=== PATIENT | female | born 1970 | race Caucasian/White ===

== ENCOUNTER 2017-07-09 23:58 | Emergency (ER) | payer BC, OTHER ==
[2017-07-10 00:40] VITALS: BP 154/91; PULSE 122; TEMP 98; BMI 28.3
--- NOTE | 2017-07-10 00:58 | PDOC ---
History of Present Illness - General History Source: Patient Exam Limitations: No Limitations <Mignon Wick - Last Filed: 07/10/17 02:09> <KoryMonicaashlie Lemus - Last Filed: 07/10/17 02:52> - General Chief Complaint: Pain Stated Complaint: CHEST PAIN Time Seen by Provider: 07/10/17 00:58 - History of Present Illness Initial Comments: 07/10/17 01:54 The patient is a 46 year old female, with a significant past medical history of asthma, who presents to the emergency department with intermittent chest pain, palpitations, and shortness of breath for 10 days. The patient states her symptoms have become more frequent and progressing in severity since the onset. She states she was taking a drop of oregano oil for her sinus congestion last week with significant resolve, however, developed her current symptoms about 2 days after starting the oregano drops. She reportedly discontinued the oregano drops, however, states her chest pain and palpitations became worse and associated feeling short of breath with her pain. She states her palpitations last for long periods of time and tonight, reports feeling the heartbeat in my ears. Secondarily, the patient reports bilateral calf tightness which she associates to her bilateral ankle swelling for the past 2 months. She states she recently traveled by car to and from [facility] on both 06/25 and 07/03. The patient denies headache and dizziness. The patient denies fever, chills, nausea, vomit, diarrhea and constipation. The patient denies dysuria, frequency, urgency and hematuria. Allergies: prednisone Social history: 1/2 pack of cigarettes daily (Mignon Wick) Past History <Mignon Wick - Last Filed: 07/10/17 02:09> - Past Medical History COPD: No Other medical history: Pt denies - Suicide/Smoking/Psychosocial Hx Smoking History: Current every day smoker Have you smoked in the past 12 months: Yes Number of Cigarettes Smoked Daily: 10 Information on smoking cessation initiated: No Hx Alcohol Use: No Drug/Substance Use Hx: No Substance Use Type: None <Monica Horn - Last Filed: 07/10/17 02:52> - Past Medical History Allergies/Adverse Reactions: Allergies Allergy/AdvReac Type Severity Reaction Status Date / Time prednisone Allergy Severe Vomiting Verified 07/10/17 00:39 Review of Systems - Review of Systems Able to Perform ROS?: Yes <Mignon Wick - Last Filed: 07/10/17 02:09> <Monica Horn - Last Filed: 07/10/17 02:52> - Review of Systems Comments:: 07/10/17 01:55 CONSTITUTIONAL: Absent: fever, chills, diaphoresis, generalized weakness, malaise, loss of appetite HEENT: Absent: rhinorrhea, nasal congestion, throat pain, throat swelling, difficulty swallowing, mouth swelling, ear pain, eye pain, visual Changes CARDIOVASCULAR: (+) chest pain, palpitations, Absent: syncope, irregular heart rate, lightheadedness, peripheral edema RESPIRATORY: (+) shortness of breath, Absent: cough, dyspnea with exertion, orthopnea, wheezing, stridor, hemoptysis GASTROINTESTINAL: Absent: abdominal pain, abdominal distension, nausea, vomiting, diarrhea, constipation, melena, hematochezia GENITOURINARY: Absent: dysuria, frequency, urgency, hesitancy, hematuria, flank pain, genital pain MUSCULOSKELETAL: (+) bilateral ankle swelling and calf tightness. Absent: myalgia, arthralgia, SKIN: Absent: rash, itching, pallor HEMATOLOGIC/IMMUNOLOGIC: Absent: easy bleeding, easy bruising, lymphadenopathy, frequent infections ENDOCRINE: Absent: unexplained weight gain, unexplained weight loss, heat intolerance, cold intolerance NEUROLOGIC: Absent: headache, focal weakness or paresthesias, dizziness, unsteady gait, seizure, mental status changes, bladder or bowel incontinence PSYCHIATRIC: Absent: anxiety, depression, suicidal or homicidal ideation, hallucinations. ( Mignon Wick) *Physical Exam <Mignon Wick - Last Filed: 07/10/17 02:09> <Monica Horn - Last Filed: 07/10/17 02:52> - Vital Signs Last Vital Signs Temp Pulse Resp BP Pulse Ox 98.0 F 122 H 20 154/91 100 07/10/17 00:34 07/10/17 00:34 07/10/17 00:34 07/10/17 00:34 07/10/17 00:34 - Physical Exam Comments: 07/10/17 01:56 GENERAL: Well developed, well nourished. Awake and alert. No acute distress. HEENT: Normocephalic, atraumatic. PERRLA, EOMI. No conjunctival pallor. Sclera are non- icteric. Moist mucous membranes. Oropharynx is clear. NECK: Supple. Full ROM. No JVD. Carotid pulses 2+ and symmetric, without bruits. No thyromegaly. No lymphadenopathy. CARDIOVASCULAR: (+) tachycardic rate with normal rhythm. No murmurs, rubs, or gallops. Distal pulses are 2+ and symmetric. PULMONARY: No evidence of respiratory distress. Lungs clear to auscultation bilaterally. No wheezing, rales or rhonchi. ABDOMINAL: Soft. Non-tender. Non-distended. No rebound or guarding. No organomegaly. Normoactive bowel sounds. MUSCULOSKELETAL Normal range of motion at all joints. No bony deformities or tenderness. No CVA tenderness. EXTREMITIES: (+) bilateral non-pitting edema to bilateral ankles. No cyanosis. No clubbing. No calf tenderness. SKIN: Warm and dry. Normal capillary refill. No rashes. No jaundice. NEUROLOGICAL: Alert, awake, appropriate. Cranial nerves 2-12 intact. Normoreflexic in the upper and lower extremities. Normal speech. Toes are down-going bilaterally. Gait is normal without ataxia. PSYCHIATRIC: Cooperative. Good eye contact. Appropriate mood and affect. (Mignon Wick) Heart Score/ECG Review <Mignon Wick - Last Filed: 07/10/17 02:09> <Monica Horn - Last Filed: 07/10/17 02:52> - [place] Comment: 07/10/17 02:08 EKG was read by Dr. Horn @ 1:20 Impression: Sinus tachycardia Vent. Rate: 105 bpm (Mignon Wick) ED Treatment Course - LABORATORY CBC & Chemistry Diagram: 07/10/17 01:22 07/10/17 01:22 <Mignon Wick - Last Filed: 07/10/17 02:09> - LABORATORY CBC & Chemistry Diagram: 07/10/17 01:22 07/10/17 01:22 <Monica Horn - Last Filed: 07/10/17 02:52> - ADDITIONAL ORDERS Additional order review: Laboratory Results 07/10/17 07/10/17 07/10/17 01:22 01:22 01:22 PT with INR 11.40 INR 1.01 Sodium 144 Potassium 5.0 Chloride 114 H Carbon Dioxide 24 Anion Gap 6 L BUN 23 H Creatinine 1.0 Creat Clearance w eGFR 59.43 Random Glucose 105 Calcium 8.4 L Magnesium 2.0 Total Bilirubin 0.2 AST 28 ALT 51 Alkaline Phosphatase 126 H Creatine Kinase 94 Troponin I < 0.02 Total Protein 5.0 L Albumin 2.1 L Serum , Qual Negative 07/10/17 01:22 RBC 3.86 MCV 84.7 MCHC 32.3 RDW 12.6 MPV 7.5 Neutrophils % 59.6 Lymphocytes % 30.8 Monocytes % 8.2 Eosinophils % 0.8 Basophils % 0.6 - RADIOLOGY Radiology Studies Ordered: Category Date Time Status DUPLEX VASCUL US-2LEGS [US] Stat Ultrasound 07/10/17 01:45 Taken - Medications Given in the ED: ED Medications Discontinued Medications Generic Name Dose Route Start Last Admin Trade Name Freq PRN Reason Stop Dose Admin Aspirin 162 mg 07/10/17 00:59 07/10/17 01:32 Asa - PO 07/10/17 01:00 162 mg ONCE ONE Administration Medical Decision Making <Mignon Wick - Last Filed: 07/10/17 02:09> <Monica Horn - Last Filed: 07/10/17 02:52> - Medical Decision Making 07/10/17 02:36 46-year-old female presents with complaint of intermittent palpitations for the past 10 days, and 2 months of lower extremity edema. Past medical history asthma. Allergies prednisone. Social history has 3 children, tobacco use, half a pack a day 20 years Patient states she has not seen a physician in many years, but has an appointment with Dr. Jayro Villareal EKG is sinus tachycardia 105 CBC is within normal limits. No leukocytosis, no significant anemia, normal platelet Chemistries negative troponin, normal creatinine, normal glucose, slightly elevated BUN at 23 07/10/17 02:38 Duplex Doppler of the right and left leg were negative for DVT (Monica Horn) *DC/Admit/Observation/Transfer <Mignon Wick - Last Filed: 07/10/17 02:09> <Monica Horn - Last Filed: 07/10/17 02:52> Diagnosis at time of Disposition: Palpitations, Edema leg - Discharge Dispostion Condition at time of disposition: Stable - Referrals Referrals: Jayro Villareal MD [Staff Physician] - - Attestations Scribe Attestion: 07/10/17 01:57 Documentation prepared by Mignon Wick, acting as clinical medical transcriptionist for Monica Horn MD (Mignon Wick)
[2017-07-10] MEDS ORDERED: ASPIRIN 81 MG CHEWABLE TABLETS PO ONE (00:59)
[2017-07-10] MEDS ORDERED: ASPIRIN 81 MG CHEWABLE TABLETS ONE (01:29)
[2017-07-10 01:35] LABS: BASO % 0.6 % (0-2.0); EOS % 0.8 % (0-4.5); HEMATOCRIT 32.7 % (32.4-45.2); HEMOGLOBIN 10.6 GM/dL (10.7-15.3); LYMPH % 30.8 % (8-40); MCH 27.4 pg (25.7-33.7); MCHC 32.3 g/dl (32.0-36.0); MEAN CELL VOLUME 84.7 fl (80-96); MEAN PLT VOLUME 7.5 fl (7.5-11.1); MONO % 8.2 % (3.8-10.2); NEUT % 59.6 % (42.8-82.8); PLATELET COUNT 330 K/MM3 (134-434); RBC 3.86 M/mm3 (3.60-5.2); RDW 12.6 % (11.6-15.6); WHITE BLOOD COUNT 9.8 K/mm3 (4.0-10.0)
[2017-07-10 01:47] LABS: INR 1.01 (0.82-1.09); PROTHROMBIN TIME (PATIENT) 11.4 SEC (9.98-11.88)
[2017-07-10 01:56] LABS: ALBUMIN 2.1 g/dl (3.4-5.0); ANION GAP 6 (8-16); BILIRUBIN,TOTAL 0.2 mg/dL (0.2-1.0); BLOOD UREA NITROGEN 23 mg/dL (7-18); CALCIUM 8.4 mg/dL (8.5-10.1); CHLORIDE 114 mmol/L (98-107); CO2 24 mmol/L (21-32); GLUCOSE,RANDOM 105 mg/dL (74-106); SGOT/AST 28 U/L (15-37); SGPT/ALT 51 U/L (12-78); SODIUM 144 mmol/L (136-145)
[2017-07-10 01:59] LABS: ALK PHOS 126 U/L (45-117)
[2017-07-10] MEDS ORDERED: SODIUM CHLORIDE 1,000 ML IV STA (03:03)
--- NOTE | 2017-07-10 04:44 | PDOC ---
*Physical Exam - Vital Signs Last Vital Signs Temp Pulse Resp BP Pulse Ox 98.0 F 122 H 20 154/91 100 07/10/17 00:34 07/10/17 00:34 07/10/17 00:34 07/10/17 00:34 07/10/17 00:34 ED Treatment Course - LABORATORY CBC & Chemistry Diagram: 07/10/17 01:22 07/10/17 01:22 - ADDITIONAL ORDERS Additional order review: Laboratory Results 07/10/17 07/10/17 07/10/17 02:45 01:22 01:22 PT with INR INR D-Dimer 1388 H Sodium 144 Potassium 5.0 Chloride 114 H Carbon Dioxide 24 Anion Gap 6 L BUN 23 H Creatinine 1.0 Creat Clearance w eGFR 59.43 Random Glucose 105 Calcium 8.4 L Magnesium 2.0 Total Bilirubin 0.2 AST 28 ALT 51 Alkaline Phosphatase 126 H Creatine Kinase 94 Troponin I < 0.02 Total Protein 5.0 L Albumin 2.1 L Serum , Qual Negative 07/10/17 01:22 PT with INR 11.40 INR 1.01 D-Dimer Sodium Potassium Chloride Carbon Dioxide Anion Gap BUN Creatinine Creat Clearance w eGFR Random Glucose Calcium Magnesium Total Bilirubin AST ALT Alkaline Phosphatase Creatine Kinase Troponin I Total Protein Albumin Serum , Qual 07/10/17 01:22 RBC 3.86 MCV 84.7 MCHC 32.3 RDW 12.6 MPV 7.5 Neutrophils % 59.6 Lymphocytes % 30.8 Monocytes % 8.2 Eosinophils % 0.8 Basophils % 0.6 - Medications Given in the ED: ED Medications Discontinued Medications Generic Name Dose Route Start Last Admin Trade Name Freq PRN Reason Stop Dose Admin Aspirin 162 mg 07/10/17 00:59 07/10/17 01:32 Asa - PO 07/10/17 01:00 162 mg ONCE ONE Administration Sodium Chloride 1,000 mls @ 1,000 mls/hr 07/10/17 03:03 07/10/17 03:24 Normal Saline - IV 07/10/17 04:02 1,000 mls/hr ASDIR STA Administration Medical Decision Making - Medical Decision Making 07/10/17 04:43 cta of chest is negative for PE. Pt to follow up with her pcp or the doctors *DC/Admit/Observation/Transfer Diagnosis at time of Disposition: Palpitations, Edema leg, Chest pain - Discharge Dispostion Disposition: HOME Condition at time of disposition: Stable Admit: No - Referrals Referrals: Jayro Villareal MD [Staff Physician] - Onur Reyes MD [Staff Physician] - Mukesh Ferrer MD, MD [Staff Physician] - - Patient Instructions Printed Discharge Instructions: DI for Chest Pain, DI for Palpitations Additional Instructions: Please follow up with your doctor or the doctors referred you here in the ER. Return if any problems - Post Discharge Activity
--- NOTE | 2017-07-10 11:04 | EKG ---
Test Reason : Blood Pressure : / mmHG Vent. Rate : 105 BPM Atrial Rate : 105 BPM P-R Int : 170 ms QRS Dur : 080 ms QT Int : 312 ms P-R-T Axes : 076 075 051 degrees QTc Int : 412 ms SINUS TACHYCARDIA POSSIBLE LEFT ATRIAL ENLARGEMENT BORDERLINE ECG NO PREVIOUS ECGS AVAILABLE Confirmed by SARAH MATIAS, DAO ([id number]) on 07/10/2017 11:04:41 AM Referred By: Confirmed By:DAO SMITH MD
== END 2017-07-10 04:56 | disposition home or self-care (01) ==
LOC: JER 23:58
PROC: 3E0337Z Introduction of Electrolytic and Water Balance Substance into Peripheral Vein, Percutaneous Approach (ICD-10-PCS; principal; 2017-07-09)
DX: R00.2 Palpitations (principal); R07.9 Chest pain, unspecified; R60.0 Localized edema
CPT/HCPCS: 36415; 71275-TC; 80053; 82550; 83735; 84484; 84703; 85025; 85379; 85610; 93005; 93010; 93970-TC; 96360; 99283-25

== ENCOUNTER 2017-12-12 09:39 | Day surgery (SDC) | payer OTHER ==
[2017-12-12 10:22] LABS: BASO % 0.5 % (0-2.0); EOS % 0.8 % (0-4.5); HEMATOCRIT 31.4 % (32.4-45.2); HEMOGLOBIN 10.7 GM/dL (10.7-15.3); LYMPH % 28.6 % (8-40); MCH 28.5 pg (25.7-33.7); MCHC 34.2 g/dl (32.0-36.0); MEAN CELL VOLUME 83.4 fl (80-96); MEAN PLT VOLUME 7.5 fl (7.5-11.1); MONO % 4.4 % (3.8-10.2); NEUT % 65.7 % (42.8-82.8); PLATELET COUNT 320 K/MM3 (134-434); RBC 3.76 M/mm3 (3.60-5.2); RDW 13.1 % (11.6-15.6); WHITE BLOOD COUNT 9.9 K/mm3 (4.0-10.0)
[2017-12-12] MEDS ORDERED: ACETAMINOPHEN 325 MG TABLET (FP) ONE ×2 (10:26→14:15)
[2017-12-12] MEDS ORDERED: ACETAMINOPHEN 325 MG TABLET (FP) PO ONE ×2 (10:30→15:00)
[2017-12-12 10:32] LABS: INR 0.98 (0.82-1.09); PROTHROMBIN TIME (PATIENT) 11.1 SEC (9.7-13.0)
[2017-12-12 10:43] VITALS: TEMP 97.9; BMI 25.9
[2017-12-12] MEDS ORDERED: ONDANSETRON 4 MG/2 ML VIAL ONE (14:14)
[2017-12-12] MEDS ORDERED: ONDANSETRON 4 MG/2 ML VIAL IVPB ONE (14:25)
[2017-12-12 18:03] VITALS: BP 119/72; PULSE 88
--- NOTE | 2017-12-24 11:13 | PATH ---
Surgical Pathology Report Patient Name: MALU BALES [facility]. Rec. #: [id number] /Age/Gender: 1970 (Age: 47) / F Account: [id number] Location: RADIOLOGY INTER Taken: 12/12/2017 Received: 12/12/2017 Reported: 12/24/2017 Physicians: Nurys Rosenthal M.D. Specimen(s) Received RENAL BIOPSY Clinical History Nephrotic syndrome and newly diagnosed Graves disease Intraoperative Consult Diagnosis Right renal biopsy: Adequate glomeruli present. Diego Goff M.D., 12/12/17 Final Diagnosis RENAL BIOPSY: 1. Diffuse endocapillary proliferative glomerulonephritis, with IgG3 kappa deposits. See Comment. 2. Proximal tubular degenerative and regenerative changes, diffuse. 3. Tubular atrophy, interstitial fibrosis and interstitial inflammation, mild to moderate. 4. Arteriosclerosis, mild. COMMENT: The immunofluorescence findings are consistent with for monoclonal IgG3 kappa deposition. Ultrastructural features of immunotactoid glomerulopathy or cryoglobulinemic glomerulonephritis are not seen, therefore the biopsy findings are consistent with proliferative GN with monoclonal IgG deposition. Clinical correlation with hematologic studies is recommended. GROSS DESCRIPTION: Received in formalin for light microscopy is 1 murdock tissue core measuring 0.5 cm in length. Received in Job fixture for immunofluorescence microscopy are 3 murdock tissue cores measuring 0.2, 0.3 and 0.4 cm in length. Received in glutaraldehyde for electron microscopy are 3 murdock tissue cores measuring 0.1-0.2 cm in length. MICROSCOPIC DESCRIPTION: Sections are stained with H&E, PAS, trichrome, and JMS. Sections show 2 core of renal cortex containing 22 glomeruli, 6 of which show complete global sclerosis. The remaining glomeruli are moderately enlarged and show diffuse endocapillary hypercellularity and global duplication of basement membranes with cellular interposition. Numerous intracapillary mononuclear leukocytes are noted. Mesangial areas show moderate diffuse hypercellularity. Segmental subendothelial fuchsinophilic deposit are seen. No definitive basement membrane spikes are identified. No crescents, fibrinoid necrosis or fibrin thrombi are seen. Proximal tubules show diffuse degenerative and regenerative changes including loss of apical brush border, nuclear enlargement and prominent nucleoli. There is mild to moderate patchy tubular atrophy and interstitial fibrosis affecting at least 30% of the cortical area, accompanied by a patchy mononuclear inflammatory cell infiltrate. No tubulitis is seen. Arteries display mild intimal fibrosis and no evidence of arteritis. IMMUNOFLUORESCENCE (PROCEDURE): INTERPRETATION: GLOMERULI TUBULES INTERSTITIUM VESSELS IgG 7gloms 3+ neg neg neg Global gran GCW IgM 7 gloms neg neg neg neg IgA 7 gloms neg casts 1+ neg neg C3 7 gloms 2+ neg neg neg Global gran GCW C1 7 gloms 2+ neg neg neg Global gran GCW FBGN 7 gloms neg neg neg neg ALB 7 gloms neg neg neg neg KAPPA 7 gloms 3+ casts 1+ neg neg Global gran GCW LAMBDA 7 gloms neg casts 1+ neg neg Positive and negative controls show appropriate reactivity. IMMUNOFLUORESCENCE (PROCEDURE) INTERPRETATION IgG1-4 heavy chain subtypes GLOMERULI TUBULES INTERSTITIUM VESSELS IgG1 5 gloms neg neg neg neg IgG2 5 gloms neg neg neg neg IgG3 5 gloms 2+ neg neg neg Global gran GCW IgG4 5 gloms neg neg neg neg ELECTRON MICROSCOPY (PROCEDURE) INTERPRETATION 3 blocks, 5 glomeruli (1 sclerotic) in block A, JEOL 1010 Electron Microscope Glomerular capillary lumina show wide spread attenuation with endothelial cell swelling, intracapillary leukocyte accumulation, duplication of basement membranes, and cellular interposition. Mild accumulation of mesangial matrix is noted. Diffuse subendothelial and mesangial immune-type electron dense deposits are noted. These deposits have a granular appearance and lack in organized substructure. A few small subepithelial electron dense deposits are also noted. No endothelial cell tubuloreticular inclusions are seen. Suarez's capsule focally contains electron dense material consistent with hyaline. Podocytes show 80% foot process effacement. Proximal tubules contain [id number] cytoplasmic protein droplets. No extraglomerular deposits are identified. A few interstitial mononuclear inflammatory cells are noted. An arteriole shows mural hyalinosis. RESULTS RENAL BIOPSY: -Electron dense deposits, mesangial and subendothelial, 3+, and subepithelial +/-. Consistent with: 1. Diffuse endocapillary proliferative glomerulonephritis, with IgG3 kappa deposits. See Comment. 2. Proximal tubular degenerative and regenerative changes, diffuse. 3. Tubular atrophy, interstitial fibrosis and interstitial inflammation, mild to moderate. 4. Arteriosclerosis, mild. Case sent for consultation to Dr. Zac Rosas from [place], [place] ([id number]), the diagnosis above reflects his opinion. See complete report ([id number]) from [place], [place] for additional details. Electronically Signed Cesia Goff M.D. Gross Description Received in saline labeled "right renal biopsy," are 2 murdock-red, cylindrical portions of soft tissue measuring 0.5 and 1.2 cm in length and averaging 0.1 cm in diameter. The specimens are divided, placed in 10% buffered formalin, Job fixative and glutaraldehyde. An intraoperative consultation is performed. The specimen is sent to [facility] for further studies. 12/12/2017 saudi12/12/2017
== END 2017-12-12 17:40 | disposition home or self-care (01) ==
LOC: JRADIR 09:39
PROVIDERS: ATTEND Internal Medicine Nephrology
PROC: 0TB03ZX Excision of Right Kidney, Percutaneous Approach, Diagnostic (ICD-10-PCS; principal; 2017-12-12)
DX: N04.9 Nephrotic syndrome with unspecified morphologic changes (principal)
CPT/HCPCS: 36415; 50200; 76098-TC-FY; 76942-TC; 76998-TC; 77012-TC; 84703; 85025; 85610; 87899; 88300-TC